=== PATIENT | female | born 1950 | race Caucasian/White ===

== ENCOUNTER → 2018-04-19 | Outpatient (CLI) | payer BC ==
--- NOTE | 2018-04-19 18:32 | Diagnostic Imaging Report ---
EXAMINATION: Left tibia and fibula at 3:32 p.m. INDICATION: Leg pain. AP and lateral views were obtained. There are no prior studies available for comparison. FINDINGS: There is no fracture, dislocation, or acute bony abnormality evident. The knee and ankle joints are fairly well maintained. The soft tissues are unremarkable. IMPRESSION: There is no evidence for an acute bony abnormality. Dictated by: Dictated on workstation # [id number]
--- NOTE | 2018-04-19 18:34 | Diagnostic Imaging Report ---
EXAMINATION: Left knee at 3:31 p.m. INDICATION: Knee pain. Three views were obtained. There are no prior studies available for comparison. FINDINGS: There is no fracture, dislocation, or acute bony abnormality evident. The knee joint is fairly well maintained. The soft tissues are unremarkable. IMPRESSION: There is no evidence for an acute bony abnormality. Dictated by: Dictated on workstation # [id number]
== END ==
LOC: RAD 14:32
PROVIDERS: ATTEND Family Medicine
DX: M25.562 Pain in left knee (principal); M79.662 Pain in left lower leg
CPT/HCPCS: 73562; 73590

== ENCOUNTER → 2018-04-26 | Outpatient (CLI) | payer BC ==
--- NOTE | 2018-04-26 18:16 | Diagnostic Imaging Report ---
PROCEDURE: US left lower extremity venous. TECHNIQUE: Multiple real-time grayscale images were obtained over the left lower extremity in various projections. Additional duplex Doppler and color Doppler images were also obtained. INDICATION: Left leg pain and swelling. FINDINGS: There is no evidence of left lower extremity DVT. Left lower extremity deep venous system shows normal compressibility with normal response to augmentation and Valsalva. No fluid collection or mass is seen. IMPRESSION: No evidence of left lower extremity DVT. Dictated by: Dictated on workstation # [id number]
== END ==
LOC: RAD 14:47
PROVIDERS: ATTEND Family Medicine
DX: R60.0 Localized edema (principal)

== ENCOUNTER → 2022-09-28 | Outpatient (CLI) | payer BC ==
--- NOTE | 2022-09-28 14:37 | Diagnostic Imaging Report ---
Indication: Palpable lump left breast. Correlation is made with diagnostic mammogram earlier same day. Sonographic interrogation of the area palpable lump outer left breast was performed. There is a solid, lobulated mass at the 3:30 location of the left breast, 6 to 7 cm from the nipple corresponding to the palpable and mammographic density. This measures 2.7 x 1.4 x 2.1 cm. There is internal vascularity. No abnormally enlarged left axillary lymph nodes are identified. No other masses are seen. IMPRESSION: BI-RADS Category 4 Lobulated, solid mass 3:30 location left breast corresponding to the palpable and mammographic abnormality. This is concerning for breast malignancy and tissue sampling is recommended. This would be amenable to ultrasound-guided core biopsy. Dictated by: Dictated on workstation # [id number]
--- NOTE | 2022-09-28 14:39 | Diagnostic Imaging Report ---
INDICATION: Palpable lump left breast. Comparison is made with prior mammogram from 11/05/2021. Unilateral left 2-D and 3-D diagnostic mammography was performed with CAD. This included conventional CC and MLO views as well as exaggerated CC and 90 degree lateral views. Skin marker was placed at the area of palpable abnormality in the upper outer right breast. There is a dense irregular masslike density in the far posterior left breast slightly lateral to the nipple line. This does show some irregular margins. No definite microcalcifications are seen. No other masses are seen. Left axilla is unremarkable. IMPRESSION: Mass-like density in the far posterior slightly outer left breast at the area of palpable abnormality. Further evaluation with ultrasound is recommended and will be performed today. Dictated by: Dictated on workstation # [id number]
== END ==
LOC: RAD 12:59
PROVIDERS: ATTEND Family Medicine
DX: N63.23 Unspecified lump in the left breast, lower outer quadrant (principal)
CPT/HCPCS: 76642; 77065; G0279

== ENCOUNTER → 2022-10-01 | Outpatient (CLI) | payer BC ==
[~2022-10-01] VITALS: Ht 170.2 cm; Wt 72.7 kg
[~2022-10-01] MED LIST: LIDOCAINE 1% INJ 10 ML VIAL INJ ONE
--- NOTE | 2022-10-01 16:51 | Diagnostic Imaging Report ---
INDICATION: Left breast mass. Patient presents for ultrasound-guided core biopsy. PROCEDURE: Patient was brought to the sonographic suite and placed on table in the supine position. Ultrasound imaging of the left breast was performed to evaluate appropriate entry site. Lateral left breast was then prepped and draped in the usual sterile fashion. Small amount 1% lidocaine was utilized for local anesthesia. A total of four core biopsies were made of the lobulated solid mass at the 3:30 location of the left breast utilizing a 14-gauge Achieve needle. A marker clip was then deployed. The needle was removed and hemostasis was obtained using manual compression. Patient tolerated the procedure well and was sent for a postprocedure mammogram in satisfactory condition. IMPRESSION: Successful ultrasound-guided core biopsy of left breast mass. Pathology results are currently pending. Dictated by: Dictated on workstation # [id number]
--- NOTE | 2022-10-02 10:51 | Diagnostic Imaging Report ---
INDICATION: Left breast mass. Patient is status post ultrasound-guided left breast biopsy. Unilateral left 2-D exaggerated CC and lateral mammography was performed after patient underwent ultrasound-guided biopsy. There is a marker clip located within the mass in the upper outer left breast at posterior depth. IMPRESSION: Marker clip placement, status post ultrasound-guided biopsy. Dictated by: Dictated on workstation # [id number]
== END ==
LOC: RAD 13:48
PROVIDERS: ATTEND Family Medicine
DX: N63.23 Unspecified lump in the left breast, lower outer quadrant (principal)
CPT/HCPCS: 19083; 77065; G0279

== ENCOUNTER 2022-10-29 14:06 | Outpatient (RCR) | payer BC | END 2022-11-02 | disposition home or self-care (01) | LOC: ONC 14:06 | PROVIDERS: ATTEND Internal Medicine Hematology & Oncology | DX: Z53.9 Procedure and treatment not carried out, unspecified reason (principal) ==

== ENCOUNTER 2022-11-26 08:41 | Outpatient (RCR) | payer BC ==
[2022-11-26 09:36] LABS: BILIRUBIN,TOTAL 0.5 MG/DL (0.1-1.0); CALCIUM 8.8 MG/DL (8.5-10.1); CREATININE SERUM 0.9 MG/DL (0.60-1.30); POTASSIUM 3.9 MMOL/L (3.6-5.0); TOTAL PROTEIN 7.2 GM/DL (6.4-8.2)
[2022-11-26 09:42] LABS: BASOPHILS # (AUTO) 0.1 10^3/uL (0.0-0.1); BASOPHILS % (AUTO) 1 % (0-10); EOSINOPHILS # (AUTO) 0.3 10^3/uL (0.0-0.3); EOSINOPHILS % (AUTO) 5 % (0-10); HEMATOCRIT 42 % (35-52); HEMOGLOBIN 13.5 g/dL (11.5-16.0); LYMPHOCYTES % (AUTO) 30 % (12-44); MEAN CORPUSCULAR HEMOGLOBIN 29 pg (25-34); MEAN CORPUSCULAR HGB CONC 32 g/dL (32-36); MEAN CORPUSCULAR VOLUME 90 fL (80-99); MEAN PLATELET VOLUME 9.8 fL (9.0-12.2); MONOCYTES # (AUTO) 0.7 10^3/uL (0.0-1.0); MONOCYTES % (AUTO) 11 % (0-12); NEUTROPHILS # (AUTO) 3.5 10^3/uL (1.8-7.8); NEUTROPHILS % (AUTO) 53 % (42-75); PLATELET COUNT 245 10^3/uL (130-400); WHITE BLOOD COUNT 6.6 10^3/uL (4.3-11.0)
== END 2022-12-03 | disposition home or self-care (01) ==
LOC: ONC 08:41
PROVIDERS: ATTEND Internal Medicine Hematology & Oncology
DX: C50.912 Malignant neoplasm of unspecified site of left female breast (principal)
CPT/HCPCS: 80053; 85025; G0463; 36415; 99214

== ENCOUNTER 2023-01-27 08:54 | Outpatient (RCR) | payer BC ==
[2023-01-27 09:11] LABS: BASOPHILS # (AUTO) 0.1 10^3/uL (0.0-0.1); BASOPHILS % (AUTO) 1 % (0-10); EOSINOPHILS # (AUTO) 0.3 10^3/uL (0.0-0.3); EOSINOPHILS % (AUTO) 5 % (0-10); HEMATOCRIT 39 % (35-52); HEMOGLOBIN 12.7 g/dL (11.5-16.0); LYMPHOCYTES # (AUTO) 1.9 10^3/uL (1.0-4.0); LYMPHOCYTES % (AUTO) 35 % (12-44); MEAN CORPUSCULAR HEMOGLOBIN 29 pg (25-34); MEAN CORPUSCULAR HGB CONC 33 g/dL (32-36); MEAN CORPUSCULAR VOLUME 90 fL (80-99); MONOCYTES # (AUTO) 0.6 10^3/uL (0.0-1.0); MONOCYTES % (AUTO) 11 % (0-12); NEUTROPHILS # (AUTO) 2.6 10^3/uL (1.8-7.8); NEUTROPHILS % (AUTO) 47 % (42-75); PLATELET COUNT 289 10^3/uL (130-400); WHITE BLOOD COUNT 5.5 10^3/uL (4.3-11.0)
[2023-01-27 09:29] LABS: ALBUMIN 3.9 GM/DL (3.2-4.5); BILIRUBIN,TOTAL 0.4 MG/DL (0.1-1.0); CALCIUM 8.8 MG/DL (8.5-10.1); CREATININE SERUM 0.84 MG/DL (0.60-1.30); POTASSIUM 3.6 MMOL/L (3.6-5.0); TOTAL PROTEIN 7.4 GM/DL (6.4-8.2)
== END 2023-02-02 | disposition home or self-care (01) ==
LOC: ONC 08:54
PROVIDERS: ATTEND Internal Medicine Hematology & Oncology
DX: C50.912 Malignant neoplasm of unspecified site of left female breast (principal)
CPT/HCPCS: 80053; 85025; G0463; 36415; 99214

== ENCOUNTER → 2023-02-19 | Outpatient (CLI) | payer BC ==
--- NOTE | 2023-02-19 11:16 | Diagnostic Imaging Report ---
INDICATION: Left breast carcinoma. CORRELATION is made with prior left breast ultrasound from 09/28/2022. Sonographic interrogation of the known mass at the 3:30 location of the left breast was performed. This has decreased in size measuring approximately 2.1 x 0.9 x 1.7 cm compared with 2.7 x 1.4 x 2.1 cm on prior exam. This does show some internal vascularity. No other masses are detected. IMPRESSION: BI-RADS Category 6. There has been some decrease in size of the known left breast malignancy at the 3:30 location when compared with the prior exam from 09/28/2022. ACR BI-RADS Category 6: Known biopsy proven malignancy. Result letter will be mailed to the patient. Note: At least 10% of breast cancer is not imaged by mammography. Dictated by: Dictated on workstation # [id number]
== END ==
LOC: RAD 09:00
PROVIDERS: ATTEND Internal Medicine Hematology & Oncology
DX: C50.012 Malignant neoplasm of nipple and areola, left female breast (principal)

== ENCOUNTER 2023-02-22 08:56 | Outpatient (RCR) | payer BC | END 2023-03-04 | disposition home or self-care (01) | LOC: ONC 08:56 | PROVIDERS: ATTEND Internal Medicine Hematology & Oncology | DX: C50.912 Malignant neoplasm of unspecified site of left female breast (principal) | CPT/HCPCS: 99214 ==